=== PATIENT | male | born 1985 | race African-American/Black ===

== ENCOUNTER 2016-07-15 08:40 | Emergency (ER) | payer SELFPAY ==
[~2016-07-15] VITALS: Ht 182.9 cm; Wt 76.6 kg
[~2016-07-15 08:40] MED LIST: ALBUAER3 INH; AZIT500T2 PO; IBUP-232 PO; PRED20 PO
[2016-07-15 08:51] VITALS: BP 146/83; PULSE 67; RESP 14; TEMP 98.7; O2SAT 100
[2016-07-15] MEDS ORDERED: SODIUM CHLORIDE 0.9% FLUSH 5 ML FLUSH IVF PRN (09:00)
[2016-07-15] MEDS ORDERED: MORPHINE SULFATE 4 MG/ML INJ IV PUSH ONE (09:00)
[2016-07-15] MEDS ORDERED: SODIUM CHLORID 0.9% 500 ML INJ 500 ML IV ONE (09:00)
[2016-07-15] MEDS ORDERED: ASPIRIN 81 MG CHEW TAB PO ONE (09:00)
[2016-07-15] MEDS ORDERED: ONDANSETRON HCL 4 MG/2 ML VIAL IV PUSH ONE (09:00)
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
[2016-07-15 09:06] VITALS: O2SAT 100
[2016-07-15 09:13] LABS: CHLORIDE 103 MEQ/L (98-107); POTASSIUM 3.6 MEQ/L (3.5-5.1); SODIUM (NA) 139 MEQ/L (136-145)
[2016-07-15 09:17] VITALS: BP_SYST 122; BP_SYST 128; BP_DIAS 68; BP_DIAS 72
[2016-07-15 09:17] LABS: ANION GAP 6 MEQ/L (5-15); BICARBONATE 29.9 MEQ/L (21.0-32.0); BLOOD UREA NITROGEN 8 MG/DL (7-18)
[2016-07-15 09:19] LABS: AUTOMATED NEUTROPHIL # 2.1 TH/MM3 (1.8-7.7); BASOPHIL % 1.2 % (0.0-2.0); EOSINOPHIL # 0.1 TH/MM3 (0-0.4); EOSINOPHIL % 1.4 % (0.0-4.0); HEMATOCRIT 45.6 % (39.0-51.0); HEMO FLAGS DIFF FINAL; LYMPH % 36.8 % (9.0-44.0); LYMPHOCYTE # 1.4 TH/MM3 (1.0-4.8); MEAN CELL VOLUME 92.9 FL (80.0-100.0); MEAN CORPUSCULAR HGB CONC 34.4 % (32.0-36.0); MONO % 8.6 % (0.0-8.0); PLATELET COUNT 228 TH/MM3 (150-450); RED BLOOD COUNT 4.91 MIL/MM3 (4.50-5.90); WHITE BLOOD COUNT 3.9 TH/MM3 (4.0-11.0)
[2016-07-15 09:20] LABS: ALT (GPT) 21 U/L (12-78); AST (GOT) 17 U/L (15-37); GLOMERULAR FILTRATION RATE 116 ML/MIN (>89)
[2016-07-15 09:22] LABS: TOTAL BILIRUBIN ADULT 1.3 MG/DL (0.2-1.0)
[2016-07-15 09:23] LABS: ALKALINE PHOSPHATASE 86 U/L (45-117); APTT (PATIENT) 29.3 SEC (24.3-30.1); CREATINE KINASE 199 U/L (39-308); PROTHROMBIN TIME - PATIENT 10.9 SEC (9.8-11.6)
[2016-07-15 09:52] VITALS: BP 138/73; PULSE 64; RESP 17; O2SAT 100
[2016-07-15 10:08] LABS: CKMB LESS THAN 0.5 NG/ML (0.5-3.6)
--- NOTE | 2016-07-15 10:13 | RADHPO ---
EXAM DATE/TIME: 07/15/2016 09:03 [facility] COMPARISON: CHEST PA & LAT, May 31, 2016, 9:56. INDICATIONS : Chest pain. MEDICAL HISTORY : None. SURGICAL HISTORY : None. ENCOUNTER: Initial ACUITY: 1 day PAIN SCORE: 5/10 LOCATION: Bilateral chest FINDINGS: A single view of the chest demonstrates the lungs to be symmetrically aerated without evidence of mas s, infiltrate or effusion. The cardiomediastinal contours are unremarkable. Osseous structures are intact. CONCLUSION: 1. No acute cardiopulmonary findings. Dusty Olson MD on July 15, 2016 at 10:10 Board Certified Radiologist. This report was verified electronically.
--- NOTE | 2016-07-16 14:22 | EKG ---
Date Performed: 07/15/2016 Time Performed: 08:45:26 PTAGE: 31 years EKG: Sinus arrhythmia. Consider left atrial abnormality Poor R wave progression - probable waqar l variant Septal ST-T changes are nonspecific Borderline ECG PREVIOUS TRACING : 10/25/2005 16.46 Since previous tracing, no significant change noted DOCTOR: Cat Gutierrez Interpretating Date/Time 07/16/2016 14:21:02
== END 2016-07-15 10:09 | disposition home or self-care (01) ==
LOC: PHED 08:40
DX: R07.89 Other chest pain (principal); R51 Headache; Z87.891 Personal history of nicotine dependence
CPT/HCPCS: 71010; 80053; 82550; 82552; 83690; 83735; 84484; 85025; 85610; 85730; 93005; 96361; 96374; 96375; 99285; J2270; J2405; J7040